=== PATIENT | female | born 1955 | race Asian ===

== ENCOUNTER → 2017-04-25 | Outpatient (CLI) | payer MEDICARE ==
[~2017-04-25] MED LIST: AMLO-511 PO; AMLO-512 PO; ASPI81 PO; CARV6 PO; CHOL50004 PO; FOLI1CAP2 PO; LEVO250T2 PO; SEVEC800 PO
[2017-04-25 13:36] LABS: BASOPHILS # (AUTO) 0.01 K/uL (0.00-0.20); BASOPHILS % (AUTO) 0.1 % (0.0-2.0); EOSINOPHILS # (AUTO) 0.17 K/uL (0.00-0.70); EOSINOPHILS % (AUTO) 1.07 % (1.0-6.0); HEMATOCRIT 31.7 % (36-46); HEMOGLOBIN 10.8 g/dL (12.0-16.0); LYMPHOCYTES # (AUTO) 1.8 K/uL (1.0-4.8); LYMPHOCYTES % (AUTO) 11.7 % (22.0-44.0); MEAN CORPUSCULAR HEMOGLOBIN 29.2 pg (26.0-34.0); MEAN CORPUSCULAR HGB CONC 34.2 G/dL (31.0-37.0); MEAN CORPUSCULAR VOLUME 85 fL (80-100); MONOCYTES # (AUTO) 0.9 K/uL (0.1-1.0); MONOCYTES % (AUTO) 5.6 % (2.0-9.0); NEUTROPHILS # (AUTO) 12.6 K/uL (1.8-7.7); NEUTROPHILS % (AUTO) 81.6 % (40.0-70.0); PLATELET COUNT (AUTO) 235 K/uL (150-450); RED CELL DISTRIBUTION WIDTH 14.8 % (11.5-14.5)
[2017-04-25 13:54] LABS: ALBUMIN 2.8 g/dL (3.4-5.0); BILIRUBIN,TOTAL 0.5 mg/dL (0.1-1.0); CALCIUM, TOTAL 8.8 mg/dL (8.8-10.5); CREATININE 16.3 mg/dL (0.60-1.30); PHOSPHORUS 6.5 mg/dL (2.5-4.9); POTASSIUM 5.5 mmol/L (3.5-5.1)
[2017-04-25 17:35] LABS: APPEARANCE,URINE CLOUDY (CLEAR); BILIRUBIN,URINE NEGATIVE (NEGATIVE); GLUCOSE, URINE (UA) 250 mg/dL (NEGATIVE); KETONES,URINE NEGATIVE (NEGATIVE); LEUKOCYTE ESTERASE ,URINE NEGATIVE (NEGATIVE); NITRATE,URINE NEGATIVE (NEGATIVE); OCCULT BLOOD,URINE SMALL (NEGATIVE); PROTEIN,URINE SEE CONFIRM (NEGATIVE); UROBILINOGEN,URINE 0.2 mg/dL (<=1.0)
[2017-04-25 18:15] LABS: SQUAMOUS EPITHELIAL CELL,UR Many /LPF (None Seen); SULFOSALICYLIC ACID,URINE 3+ (Negative)
[2017-04-25 18:17] LABS: BACTERIA,URINE Few /HPF (None Seen)
== END | disposition home or self-care (01) ==
LOC: LABPV 12:38
PROVIDERS: ATTEND Internal Medicine Nephrology
DX: N18.6 End stage renal disease (principal); R82.90 Unspecified abnormal findings in urine; E21.5 Disorder of parathyroid gland, unspecified; I42.0 Dilated cardiomyopathy; R79.9 Abnormal finding of blood chemistry, unspecified; D63.1 Anemia in chronic kidney disease; Z99.2 Dependence on renal dialysis
CPT/HCPCS: 83970; 84100; 87340

== ENCOUNTER 2017-04-26 10:24 | Inpatient (IN) | payer MEDICARE ==
[~2017-04-26] VITALS: Ht 157.5 cm; Wt 56.9 kg
[2017-04-26] MEDS ORDERED: ASPI81 PO (10:33)
[2017-04-26] MEDS ORDERED: CHOL50004 PO (10:33)
[2017-04-26] MEDS ORDERED: CARV6 PO (10:33)
[2017-04-26] MEDS ORDERED: AMLO-511 PO (10:33)
[2017-04-26 12:07] LABS: EOSINOPHILS # (AUTO) 0.12 K/uL (0.00-0.70); EOSINOPHILS % (AUTO) 0.69 % (1.0-6.0); HEMATOCRIT 30.5 % (36-46); HEMOGLOBIN 10.2 g/dL (12.0-16.0); MEAN CORPUSCULAR HEMOGLOBIN 29.2 pg (26.0-34.0); MEAN CORPUSCULAR HGB CONC 33.3 G/dL (31.0-37.0); MEAN CORPUSCULAR VOLUME 88 fL (80-100); MONOCYTES # (AUTO) 0.9 K/uL (0.1-1.0); MONOCYTES % (AUTO) 5.3 % (2.0-9.0); PLATELET COUNT (AUTO) 245 K/uL (150-450); RED BLOOD CELL COUNT(AUTO) 3.49 MIL/uL (4.00-5.20); RED CELL DISTRIBUTION WIDTH 14.9 % (11.5-14.5); WHITE BLOOD COUNT (AUTO) 17.1 K/uL (4.5-11.0)
[2017-04-26 12:15] LABS: ALBUMIN 2.7 g/dL (3.4-5.0); BILIRUBIN,TOTAL 0.5 mg/dL (0.1-1.0); CALCIUM, TOTAL 8.8 mg/dL (8.8-10.5); CREATININE 17.22 mg/dL (0.60-1.30); POTASSIUM 5.8 mmol/L (3.5-5.1); TOTAL PROTEIN, SERUM 8.1 g/dL (6.4-8.2)
[2017-04-26 12:34] LABS: RBC MORPHOLOGY COMMENT ABNORMAL RBC MORPH
[2017-04-26] MEDS ORDERED: ALBUTEROL SULFATE 2.5 MG/0.5 ML NEB SOLUTION NEB PRN (13:45)
[2017-04-26] MEDS ORDERED: BISACODYL 10 MG RECTAL RECTAL SUPPOSITORY PR PRN (13:45)
[2017-04-26] MEDS ORDERED: ONDANSETRON HCL 4 MG/2 ML VIAL IVP PRN (14:00)
[2017-04-26] MEDS ORDERED: SODIUM POLYSTYRENE SULFONATE 15 GM/60 ML SUSPENSION BOTTLE PO ONE (14:00)
[2017-04-26] MEDS ORDERED: CALCIUM GLUCONATE 0.465 MEQ/ML 10 ML VIAL IVP ONE (14:00)
[2017-04-26] MEDS ORDERED: 0.9% SODIUM CHLORIDE 10 ML SYRINGE IVP PRN (14:00)
[2017-04-26] MEDS ORDERED: ACETAMINOPHEN 325 MG TABLET PO PRN (14:00)
[2017-04-26] MEDS ORDERED: VANCOMYCIN HCL 1 GM/D5% WATER 200 ML IV PRN (14:30)
[2017-04-26 14:54] VITALS: BP 120/72
[2017-04-26] MEDS ORDERED: VANCOMYCIN HCL 1 GM/D5% WATER 200 ML IV ONE (15:00)
[2017-04-26] MEDS ORDERED: SODIUM CHLORIDE 0.9% 2,000 ML IV ONE (16:53)
[2017-04-26] MEDS ORDERED: INFLUENZA VIRUS VACCINE QVS 2017-18 (3YR+)/PF 60 MCG/0.5 ML SYRINGE IM ONE (17:15)
[2017-04-26] MEDS: ACETAMINOPHEN 325 MG TABLET PO PRN (19:03)
[2017-04-26] MEDS: HEPARIN SODIUM,PORCINE 5,000 UNITS/ML VIAL SQ SCH (20:56)
[2017-04-26] MEDS: VITAMIN B COMP/VIT C/FOLIC ACID CAPSULE PO SCH (20:56)
[2017-04-26] MEDS: DOCUSATE SODIUM 100 MG CAPSULE PO SCH (20:57)
[2017-04-26 21:18] VITALS: BP 146/83
[2017-04-26] MEDS ORDERED: HEPARIN SODIUM,PORCINE 1,000 UNITS/ML VIAL IVP ONE ×2 (22:30)
[2017-04-27] VITALS (7 sets, daily range): BP systolic 111–138; BP diastolic 59–79
[2017-04-27 02:04] LABS: APPEARANCE,URINE CLEAR (CLEAR); GLUCOSE, URINE (UA) 100 mg/dL (NEGATIVE); KETONES,URINE TRACE mg/dL (NEGATIVE); LEUKOCYTE ESTERASE ,URINE NEGATIVE (NEGATIVE); OCCULT BLOOD,URINE SMALL (NEGATIVE); PH,URINE 7.5 (5.0-8.0); PROTEIN,URINE SEE CONFIRM (NEGATIVE)
[2017-04-27 02:05] LABS: ADD UA MICROSCOPIC YES
[2017-04-27 02:13] LABS: SULFOSALICYLIC ACID,URINE 1+ (Negative)
[2017-04-27 02:14] LABS: SQUAMOUS EPITHELIAL CELL,UR Moderate /LPF (None Seen)
[2017-04-27 06:16] LABS: EOSINOPHILS % (AUTO) 0.5 % (1.0-6.0); HEMATOCRIT 28.9 % (36-46); HEMOGLOBIN 9.9 g/dL (12.0-16.0); LYMPHOCYTES # (AUTO) 1.1 K/uL (1.0-4.8); LYMPHOCYTES % (AUTO) 6.6 % (22.0-44.0); MEAN CORPUSCULAR HEMOGLOBIN 29.5 pg (26.0-34.0); MEAN CORPUSCULAR HGB CONC 34.2 G/dL (31.0-37.0); MEAN CORPUSCULAR VOLUME 86 fL (80-100); MONOCYTES # (AUTO) 1.2 K/uL (0.1-1.0); MONOCYTES % (AUTO) 7.1 % (2.0-9.0); NEUTROPHILS # (AUTO) 14.7 K/uL (1.8-7.7); PLATELET COUNT (AUTO) 219 K/uL (150-450); RED BLOOD CELL COUNT(AUTO) 3.35 MIL/uL (4.00-5.20); RED CELL DISTRIBUTION WIDTH 14.4 % (11.5-14.5); WHITE BLOOD COUNT (AUTO) 17.1 K/uL (4.5-11.0)
[2017-04-27 06:47] LABS: CALCIUM, TOTAL 8.4 mg/dL (8.8-10.5); CREATININE 9.03 mg/dL (0.60-1.30); MAGNESIUM 1.7 mg/dL (1.80-2.40); PHOSPHORUS 5.5 mg/dL (2.5-4.9); POTASSIUM 3.7 mmol/L (3.5-5.1)
[2017-04-27 06:54] LABS: NEUTROPHILS % (AUTO) 85.8 % (40.0-70.0)
[2017-04-27] MEDS: ASPIRIN 81 MG CHEWABLE TABLET PO SCH (08:03)
[2017-04-27] MEDS: PANTOPRAZOLE SODIUM 40 MG DR TABLET PO SCH (08:03)
[2017-04-27] MEDS: VITAMIN B COMP/VIT C/FOLIC ACID CAPSULE PO SCH (08:03)
[2017-04-27] MEDS: HEPARIN SODIUM,PORCINE 5,000 UNITS/ML VIAL SQ SCH ×2 (08:04→20:33)
[2017-04-27] MEDS: DOCUSATE SODIUM 100 MG CAPSULE PO SCH ×2 (08:07→20:37)
[2017-04-27] MEDS ORDERED: VITAMIN B COMP/VIT C/FOLIC ACID CAPSULE PO SCH (09:00)
[2017-04-27] MEDS ORDERED: PIPERACILLIN SODIUM/TAZOBACTAM 0.75 GM in DEXTROSE 5%-WATER 50 ML IV PRN (13:45)
[2017-04-27] MEDS: PIPERACILLIN SODIUM/TAZOBACTAM 2.25 GM in DEXTROSE 5%-WATER 50 ML IV SCH ×2 (15:12→23:02)
[2017-04-27] MEDS ORDERED: CefTRIAXone 1 GM/DEXTROSE 50 ML IV SCH (15:15)
[2017-04-27] MEDS ORDERED: GENTAMICIN 120 MG/NACL ISO-OSM 100 ML IV ONE (16:00)
[2017-04-27] MEDS: ACETAMINOPHEN 325 MG TABLET PO PRN (21:43)
[2017-04-28 05:36] VITALS: BP 145/85
[2017-04-28 06:08] LABS: BASOPHILS % (AUTO) 0.2 % (0.0-2.0); EOSINOPHILS % (AUTO) 0.5 % (1.0-6.0); HEMATOCRIT 29.5 % (36-46); LYMPHOCYTES # (AUTO) 1.5 K/uL (1.0-4.8); LYMPHOCYTES % (AUTO) 8.2 % (22.0-44.0); MEAN CORPUSCULAR HEMOGLOBIN 29.1 pg (26.0-34.0); MEAN CORPUSCULAR HGB CONC 33.8 G/dL (31.0-37.0); MEAN CORPUSCULAR VOLUME 86 fL (80-100); MONOCYTES # (AUTO) 1.2 K/uL (0.1-1.0); MONOCYTES % (AUTO) 6.7 % (2.0-9.0); NEUTROPHILS # (AUTO) 14.9 K/uL (1.8-7.7); NEUTROPHILS % (AUTO) 84.4 % (40.0-70.0); PLATELET COUNT (AUTO) 263 K/uL (150-450); RED BLOOD CELL COUNT(AUTO) 3.43 MIL/uL (4.00-5.20); RED CELL DISTRIBUTION WIDTH 14.3 % (11.5-14.5); WHITE BLOOD COUNT (AUTO) 17.7 K/uL (4.5-11.0)
[2017-04-28] MEDS: PIPERACILLIN SODIUM/TAZOBACTAM 2.25 GM in DEXTROSE 5%-WATER 50 ML IV SCH ×3 (06:27→22:27)
[2017-04-28] MEDS ORDERED: HEPARIN SODIUM,PORCINE 1,000 UNITS/ML VIAL IVP ONE (07:09)
[2017-04-28 07:33] VITALS: BP 112/69
[2017-04-28 07:40] LABS: CALCIUM, TOTAL 8.1 mg/dL (8.8-10.5); CREATININE 11.7 mg/dL (0.60-1.30); MAGNESIUM 1.8 mg/dL (1.80-2.40); PHOSPHORUS 5.8 mg/dL (2.5-4.9); POTASSIUM 4.6 mmol/L (3.5-5.1)
[2017-04-28] MEDS: VITAMIN B COMP/VIT C/FOLIC ACID CAPSULE PO SCH (08:56)
[2017-04-28] MEDS: HEPARIN SODIUM,PORCINE 5,000 UNITS/ML VIAL SQ SCH ×2 (08:56→20:14)
[2017-04-28] MEDS: DOCUSATE SODIUM 100 MG CAPSULE PO SCH ×2 (08:57→20:14)
[2017-04-28] MEDS: ASPIRIN 81 MG CHEWABLE TABLET PO SCH (08:57)
[2017-04-28] MEDS: PANTOPRAZOLE SODIUM 40 MG DR TABLET PO SCH (08:57)
[2017-04-28] MEDS ORDERED: -ZOSYN NOTE- MISC SCH (09:00)
[2017-04-28 09:52] LABS: PROTHROMBIN TIME 10.7 SEC (9.4-11.6)
[2017-04-28 11:35] VITALS: BP 133/74
[2017-04-28] MEDS ORDERED: LIDOCAINE HCL/PF 1% 30 ML VIAL ONE (14:19)
[2017-04-28 15:35] VITALS: BP 137/78
[2017-04-28] MEDS: ACETAMINOPHEN 325 MG TABLET PO PRN (17:44)
[2017-04-28 20:03] VITALS: BP 134/76
[2017-04-29 00:27] VITALS: BP 148/74
[2017-04-29 04:37] VITALS: BP 143/79
[2017-04-29] MEDS: PIPERACILLIN SODIUM/TAZOBACTAM 2.25 GM in DEXTROSE 5%-WATER 50 ML IV SCH ×2 (06:21→16:25)
[2017-04-29 07:26] LABS: BASOPHILS # (AUTO) 0.01 K/uL (0.00-0.20); BASOPHILS % (AUTO) 0.1 % (0.0-2.0); EOSINOPHILS # (AUTO) 0.18 K/uL (0.00-0.70); EOSINOPHILS % (AUTO) 1.06 % (1.0-6.0); HEMATOCRIT 27.2 % (36-46); HEMOGLOBIN 9.3 g/dL (12.0-16.0); LYMPHOCYTES # (AUTO) 2.1 K/uL (1.0-4.8); LYMPHOCYTES % (AUTO) 12.3 % (22.0-44.0); MEAN CORPUSCULAR HEMOGLOBIN 29.6 pg (26.0-34.0); MEAN CORPUSCULAR HGB CONC 34.1 G/dL (31.0-37.0); MEAN CORPUSCULAR VOLUME 87 fL (80-100); MONOCYTES # (AUTO) 1.1 K/uL (0.1-1.0); MONOCYTES % (AUTO) 6.5 % (2.0-9.0); NEUTROPHILS # (AUTO) 13.5 K/uL (1.8-7.7); PLATELET COUNT (AUTO) 264 K/uL (150-450); RED BLOOD CELL COUNT(AUTO) 3.14 MIL/uL (4.00-5.20); RED CELL DISTRIBUTION WIDTH 14.7 % (11.5-14.5); WHITE BLOOD COUNT (AUTO) 16.9 K/uL (4.5-11.0)
[2017-04-29 07:29] VITALS: BP 125/60
[2017-04-29 07:35] LABS: CALCIUM, TOTAL 8.3 mg/dL (8.8-10.5); CREATININE 13.63 mg/dL (0.60-1.30); MAGNESIUM 1.9 mg/dL (1.80-2.40); PHOSPHORUS 6.3 mg/dL (2.5-4.9); POTASSIUM 4.5 mmol/L (3.5-5.1)
[2017-04-29] MEDS: VITAMIN B COMP/VIT C/FOLIC ACID CAPSULE PO SCH (09:00)
[2017-04-29] MEDS: HEPARIN SODIUM,PORCINE 5,000 UNITS/ML VIAL SQ SCH ×2 (09:07→20:16)
[2017-04-29] MEDS: EPOETIN ALFA 10,000 UNITS/ML VIAL SQ SCH (09:07)
[2017-04-29] MEDS: DOCUSATE SODIUM 100 MG CAPSULE PO SCH ×2 (09:08→20:16)
[2017-04-29] MEDS: ASPIRIN 81 MG CHEWABLE TABLET PO SCH (09:09)
[2017-04-29] MEDS: PANTOPRAZOLE SODIUM 40 MG DR TABLET PO SCH (09:09)
[2017-04-29] MEDS ORDERED: VANCOMYCIN HCL 1 GM/D5% WATER 200 ML IV ONE (10:00)
[2017-04-29 11:05] VITALS: BP 127/56
[2017-04-29] MEDS ORDERED: *CLINICAL-GENTAMICIN DOSING CLINICAL ONE ×2 (14:00)
[2017-04-29 15:17] VITALS: BP 142/65
[2017-04-29] MEDS: SEVELAMER CARBONATE 800 MG TABLET PO SCH (17:50)
[2017-04-29 20:00] VITALS: BP 156/80
[2017-04-30] VITALS (7 sets, daily range): BP systolic 115–161; BP diastolic 67–89
[2017-04-30] MEDS: CefTRIAXone 1 GM/DEXTROSE 50 ML IV SCH ×2 (00:13→23:33)
[2017-04-30 07:30] LABS: BASOPHILS # (AUTO) 0.05 K/uL (0.00-0.20); BASOPHILS % (AUTO) 0.3 % (0.0-2.0); EOSINOPHILS # (AUTO) 0.25 K/uL (0.00-0.70); EOSINOPHILS % (AUTO) 1.32 % (1.0-6.0); HEMATOCRIT 27.2 % (36-46); HEMOGLOBIN 9.1 g/dL (12.0-16.0); LYMPHOCYTES % (AUTO) 10.5 % (22.0-44.0); MEAN CORPUSCULAR HEMOGLOBIN 29.1 pg (26.0-34.0); MEAN CORPUSCULAR HGB CONC 33.6 G/dL (31.0-37.0); MEAN CORPUSCULAR VOLUME 87 fL (80-100); MONOCYTES # (AUTO) 0.8 K/uL (0.1-1.0); NEUTROPHILS # (AUTO) 15.9 K/uL (1.8-7.7); NEUTROPHILS % (AUTO) 83.9 % (40.0-70.0); PLATELET COUNT (AUTO) 296 K/uL (150-450); RED BLOOD CELL COUNT(AUTO) 3.13 MIL/uL (4.00-5.20); RED CELL DISTRIBUTION WIDTH 14.8 % (11.5-14.5)
[2017-04-30 08:05] LABS: CALCIUM, TOTAL 8.1 mg/dL (8.8-10.5); CREATININE 14.99 mg/dL (0.60-1.30); PHOSPHORUS 7.1 mg/dL (2.5-4.9); POTASSIUM 4.5 mmol/L (3.5-5.1)
[2017-04-30] MEDS: -POST HEMODIALYSIS NOTE- MISC SCH (08:09)
[2017-04-30] MEDS: VITAMIN B COMP/VIT C/FOLIC ACID CAPSULE PO SCH (08:20)
[2017-04-30] MEDS: AmLODIPine BESYLATE 10 MG TABLET PO SCH (08:20)
[2017-04-30] MEDS: PANTOPRAZOLE SODIUM 40 MG DR TABLET PO SCH (08:20)
[2017-04-30] MEDS: DOCUSATE SODIUM 100 MG CAPSULE PO SCH ×2 (08:20→20:01)
[2017-04-30] MEDS: SEVELAMER CARBONATE 800 MG TABLET PO SCH ×3 (08:20→17:51)
[2017-04-30] MEDS: ASPIRIN 81 MG CHEWABLE TABLET PO SCH (08:20)
[2017-04-30] MEDS: HEPARIN SODIUM,PORCINE 5,000 UNITS/ML VIAL SQ SCH ×2 (08:21→20:01)
[2017-04-30] MEDS ORDERED: AMLO-512 PO (14:15)
[2017-04-30] MEDS: CARVEDILOL 6.25 MG TABLET PO SCH (20:01)
[2017-05-01] VITALS (7 sets, daily range): BP systolic 149–162; BP diastolic 74–87
[2017-05-01] MEDS: CARVEDILOL 6.25 MG TABLET PO SCH ×2 (08:25→19:03)
[2017-05-01] MEDS: PANTOPRAZOLE SODIUM 40 MG DR TABLET PO SCH (08:25)
[2017-05-01] MEDS: SEVELAMER CARBONATE 800 MG TABLET PO SCH ×3 (08:25→18:10)
[2017-05-01] MEDS: ASPIRIN 81 MG CHEWABLE TABLET PO SCH (08:25)
[2017-05-01] MEDS: VITAMIN B COMP/VIT C/FOLIC ACID CAPSULE PO SCH (08:25)
[2017-05-01] MEDS: AmLODIPine BESYLATE 10 MG TABLET PO SCH (08:25)
[2017-05-01] MEDS: HEPARIN SODIUM,PORCINE 5,000 UNITS/ML VIAL SQ SCH (08:25)
[2017-05-01] MEDS: DOCUSATE SODIUM 100 MG CAPSULE PO SCH ×2 (08:28→20:20)
[2017-05-01] MEDS: -POST HEMODIALYSIS NOTE- MISC SCH (09:00)
[2017-05-01] MEDS: CefTRIAXone 1 GM/DEXTROSE 50 ML IV SCH (23:02)
[2017-05-02] MEDS: -POST HEMODIALYSIS NOTE- MISC SCH (02:30)
[2017-05-02 05:45] VITALS: BP 152/79
[2017-05-02 06:38] LABS: BASOPHILS % (AUTO) 0.1 % (0.0-2.0); EOSINOPHILS % (AUTO) 0.5 % (1.0-6.0); HEMATOCRIT 25.5 % (36-46); HEMOGLOBIN 8.8 g/dL (12.0-16.0); LYMPHOCYTES # (AUTO) 2.5 K/uL (1.0-4.8); LYMPHOCYTES % (AUTO) 11.1 % (22.0-44.0); MEAN CORPUSCULAR HEMOGLOBIN 29.6 pg (26.0-34.0); MEAN CORPUSCULAR HGB CONC 34.7 G/dL (31.0-37.0); MEAN CORPUSCULAR VOLUME 85 fL (80-100); MONOCYTES # (AUTO) 0.9 K/uL (0.1-1.0); MONOCYTES % (AUTO) 3.9 % (2.0-9.0); NEUTROPHILS # (AUTO) 19.1 K/uL (1.8-7.7); NEUTROPHILS % (AUTO) 84.4 % (40.0-70.0); PLATELET COUNT (AUTO) 316 K/uL (150-450); RED BLOOD CELL COUNT(AUTO) 2.99 MIL/uL (4.00-5.20); RED CELL DISTRIBUTION WIDTH 14.9 % (11.5-14.5); WHITE BLOOD COUNT (AUTO) 22.7 K/uL (4.5-11.0)
[2017-05-02 07:11] LABS: CALCIUM, TOTAL 8.5 mg/dL (8.8-10.5); CREATININE 16.23 mg/dL (0.60-1.30); PHOSPHORUS 7.8 mg/dL (2.5-4.9); POTASSIUM 4.9 mmol/L (3.5-5.1)
[2017-05-02 07:50] VITALS: BP 160/70
[2017-05-02] MEDS: SEVELAMER CARBONATE 800 MG TABLET PO SCH ×3 (08:00→17:10)
[2017-05-02] MEDS: AmLODIPine BESYLATE 10 MG TABLET PO SCH (08:07)
[2017-05-02] MEDS: CARVEDILOL 6.25 MG TABLET PO SCH ×2 (08:07→20:28)
[2017-05-02] MEDS: VITAMIN B COMP/VIT C/FOLIC ACID CAPSULE PO SCH (08:08)
[2017-05-02] MEDS: PANTOPRAZOLE SODIUM 40 MG DR TABLET PO SCH (08:08)
[2017-05-02] MEDS: DOCUSATE SODIUM 100 MG CAPSULE PO SCH ×2 (08:08→21:00)
[2017-05-02] MEDS: EPOETIN ALFA 10,000 UNITS/ML VIAL SQ SCH (09:00)
[2017-05-02] MEDS ORDERED: HEPARIN SODIUM,PORCINE 1,000 UNITS/ML 10 ML VIAL ONE (09:32)
[2017-05-02] MEDS ORDERED: LIDOCAINE HCL/PF 1% 30 ML VIAL ONE (09:32)
[2017-05-02] MEDS ORDERED: HEPARIN SODIUM 1000 UNITS/NS 500 ML ONE (09:32)
[2017-05-02] MEDS ORDERED: FentaNYL CITRATE-PF 100 MCG/2 ML VIAL ONE (09:40)
[2017-05-02] MEDS ORDERED: MIDAZOLAM HCL 2 MG/2 ML VIAL ONE (09:41)
[2017-05-02] MEDS ORDERED: MIDAZOLAM HCL 2 MG/2 ML VIAL IVP ONE (10:24)
[2017-05-02] MEDS ORDERED: FentaNYL CITRATE-PF 100 MCG/2 ML VIAL IVP ONE (10:32)
[2017-05-02] MEDS ORDERED: HEPARIN SODIUM,PORCINE 1,000 UNITS/ML VIAL IVP ONE (12:00)
[2017-05-02 12:20] VITALS: BP 158/85
[2017-05-02] MEDS: ACETAMINOPHEN 325 MG TABLET PO PRN (13:18)
[2017-05-02 15:41] VITALS: BP 150/84
[2017-05-02] MEDS: OxyCODONE HCL/ACETAMINOPHEN 5-325 MG TABLET PO PRN (17:10)
[2017-05-02 20:11] VITALS: BP 149/91
[2017-05-02] MEDS ORDERED: OxyCODONE HCL/ACETAMINOPHEN 5-325 MG TABLET PO ONE (20:15)
[2017-05-02] MEDS: CefTRIAXone 1 GM/DEXTROSE 50 ML IV SCH (23:20)
[2017-05-03 00:09] VITALS: BP 126/77
[2017-05-03] MEDS: OxyCODONE HCL/ACETAMINOPHEN 5-325 MG TABLET PO PRN ×3 (00:57→20:23)
[2017-05-03] MEDS: GENTAMICIN 80 MG/NACL ISO-OSM 50 ML IV PRN (02:30)
[2017-05-03 05:52] VITALS: BP 131/78
[2017-05-03 06:20] LABS: HEMATOCRIT 28.3 % (36-46); HEMOGLOBIN 9.7 g/dL (12.0-16.0); MEAN CORPUSCULAR HEMOGLOBIN 29.6 pg (26.0-34.0); MEAN CORPUSCULAR HGB CONC 34.3 G/dL (31.0-37.0); MEAN CORPUSCULAR VOLUME 86 fL (80-100); PLATELET COUNT (AUTO) 351 K/uL (150-450); RED BLOOD CELL COUNT(AUTO) 3.29 MIL/uL (4.00-5.20); RED CELL DISTRIBUTION WIDTH 14.5 % (11.5-14.5); WHITE BLOOD COUNT (AUTO) 23.1 K/uL (4.5-11.0)
[2017-05-03 06:36] LABS: CALCIUM, TOTAL 8.6 mg/dL (8.8-10.5); CREATININE 11.29 mg/dL (0.60-1.30); MAGNESIUM 1.9 mg/dL (1.80-2.40); PHOSPHORUS 7.1 mg/dL (2.5-4.9); POTASSIUM 4.4 mmol/L (3.5-5.1)
[2017-05-03 07:37] VITALS: BP 144/77
[2017-05-03 08:06] LABS: BAND NEUTROPHILS % (MANUAL) 4 % (1-5); LYMPHOCYTES % (MANUAL) 18 % (22-44); METAMYELOCYTES % 2 % (0-0); RBC MORPHOLOGY COMMENT NORMAL RBC MORPH; TOTAL CELLS COUNTED 100
[2017-05-03] MEDS: DOCUSATE SODIUM 100 MG CAPSULE PO SCH ×2 (09:00→20:23)
[2017-05-03] MEDS: -POST HEMODIALYSIS NOTE- MISC SCH (09:00)
[2017-05-03] MEDS: SEVELAMER CARBONATE 800 MG TABLET PO SCH ×3 (10:26→18:37)
[2017-05-03] MEDS: AmLODIPine BESYLATE 10 MG TABLET PO SCH (10:27)
[2017-05-03] MEDS: CARVEDILOL 6.25 MG TABLET PO SCH ×2 (10:27→20:23)
[2017-05-03] MEDS: VITAMIN B COMP/VIT C/FOLIC ACID CAPSULE PO SCH (10:27)
[2017-05-03] MEDS: PANTOPRAZOLE SODIUM 40 MG DR TABLET PO SCH (10:27)
[2017-05-03 11:11] VITALS: BP 124/70
[2017-05-03] MEDS ORDERED: HEPARIN SODIUM,PORCINE 1,000 UNITS/ML VIAL IVP ONE ×3 (12:00→18:45)
[2017-05-03] MEDS ORDERED: SODIUM CHLORIDE 0.9% 2,000 ML IV ONE (14:58)
[2017-05-03 15:38] VITALS: BP 155/88
[2017-05-03 20:16] VITALS: BP 134/73
[2017-05-03] MEDS: CefTRIAXone 1 GM/DEXTROSE 50 ML IV SCH (23:43)
[2017-05-04 00:32] VITALS: BP 144/76
[2017-05-04 04:25] VITALS: BP 138/73
[2017-05-04] MEDS: OxyCODONE HCL/ACETAMINOPHEN 5-325 MG TABLET PO PRN ×2 (04:32→20:41)
[2017-05-04 05:47] LABS: BASOPHILS # (AUTO) 0.02 K/uL (0.00-0.20); BASOPHILS % (AUTO) 0.1 % (0.0-2.0); EOSINOPHILS # (AUTO) 0.09 K/uL (0.00-0.70); EOSINOPHILS % (AUTO) 0.49 % (1.0-6.0); HEMATOCRIT 27.1 % (36-46); HEMOGLOBIN 9.1 g/dL (12.0-16.0); LYMPHOCYTES # (AUTO) 1.5 K/uL (1.0-4.8); LYMPHOCYTES % (AUTO) 8.5 % (22.0-44.0); MEAN CORPUSCULAR HEMOGLOBIN 29.2 pg (26.0-34.0); MEAN CORPUSCULAR HGB CONC 33.6 G/dL (31.0-37.0); MEAN CORPUSCULAR VOLUME 87 fL (80-100); MONOCYTES # (AUTO) 0.8 K/uL (0.1-1.0); MONOCYTES % (AUTO) 4.6 % (2.0-9.0); NEUTROPHILS # (AUTO) 15.5 K/uL (1.8-7.7); PLATELET COUNT (AUTO) 301 K/uL (150-450); RED BLOOD CELL COUNT(AUTO) 3.11 MIL/uL (4.00-5.20); RED CELL DISTRIBUTION WIDTH 14.5 % (11.5-14.5); WHITE BLOOD COUNT (AUTO) 17.9 K/uL (4.5-11.0)
[2017-05-04 06:10] LABS: CALCIUM, TOTAL 8.6 mg/dL (8.8-10.5); CREATININE 6.95 mg/dL (0.60-1.30); MAGNESIUM 1.6 mg/dL (1.80-2.40); PHOSPHORUS 5.4 mg/dL (2.5-4.9); POTASSIUM 4.2 mmol/L (3.5-5.1)
[2017-05-04 06:56] LABS: NEUTROPHILS % (AUTO) 86.3 % (40.0-70.0)
[2017-05-04 07:37] VITALS: BP 153/73
[2017-05-04 08:27] LABS: RBC MORPHOLOGY COMMENT NORMAL RBC MORPH
[2017-05-04] MEDS: PANTOPRAZOLE SODIUM 40 MG DR TABLET PO SCH (09:58)
[2017-05-04] MEDS: VITAMIN B COMP/VIT C/FOLIC ACID CAPSULE PO SCH (09:58)
[2017-05-04] MEDS: DOCUSATE SODIUM 100 MG CAPSULE PO SCH ×2 (09:58→20:41)
[2017-05-04] MEDS: SEVELAMER CARBONATE 800 MG TABLET PO SCH ×3 (09:58→17:50)
[2017-05-04] MEDS: EPOETIN ALFA 10,000 UNITS/ML VIAL SQ SCH (09:58)
[2017-05-04] MEDS: AmLODIPine BESYLATE 10 MG TABLET PO SCH (09:58)
[2017-05-04] MEDS: CARVEDILOL 6.25 MG TABLET PO SCH ×2 (09:58→20:41)
[2017-05-04 11:57] VITALS: BP 160/72
[2017-05-04 15:13] VITALS: BP 144/80
[2017-05-04 19:45] VITALS: BP 158/85
[2017-05-04] MEDS: CefTRIAXone 1 GM/DEXTROSE 50 ML IV SCH (21:18)
[2017-05-05 05:45] VITALS: BP 146/74
[2017-05-05 06:05] LABS: BASOPHILS % (AUTO) 0.2 % (0.0-2.0); HEMATOCRIT 25.4 % (36-46); HEMOGLOBIN 8.7 g/dL (12.0-16.0); LYMPHOCYTES # (AUTO) 1.9 K/uL (1.0-4.8); MEAN CORPUSCULAR HEMOGLOBIN 29.7 pg (26.0-34.0); MEAN CORPUSCULAR HGB CONC 34.4 G/dL (31.0-37.0); MEAN CORPUSCULAR VOLUME 86 fL (80-100); MONOCYTES # (AUTO) 0.9 K/uL (0.1-1.0); MONOCYTES % (AUTO) 4.4 % (2.0-9.0); NEUTROPHILS # (AUTO) 16.4 K/uL (1.8-7.7); NEUTROPHILS % (AUTO) 84.4 % (40.0-70.0); PLATELET COUNT (AUTO) 345 K/uL (150-450); RED BLOOD CELL COUNT(AUTO) 2.94 MIL/uL (4.00-5.20); WHITE BLOOD COUNT (AUTO) 19.5 K/uL (4.5-11.0)
[2017-05-05 06:13] LABS: CALCIUM, TOTAL 8.6 mg/dL (8.8-10.5); CREATININE 10.17 mg/dL (0.60-1.30); MAGNESIUM 1.8 mg/dL (1.80-2.40); PHOSPHORUS 6.9 mg/dL (2.5-4.9); POTASSIUM 4.5 mmol/L (3.5-5.1)
[2017-05-05 07:30] VITALS: BP 145/81
[2017-05-05] MEDS ORDERED: SODIUM CHLORIDE 0.9% 2,000 ML IV ONE (07:56)
[2017-05-05] MEDS: SEVELAMER CARBONATE 800 MG TABLET PO SCH ×3 (08:00→18:08)
[2017-05-05] MEDS: OxyCODONE HCL/ACETAMINOPHEN 5-325 MG TABLET PO PRN (08:01)
[2017-05-05] MEDS ORDERED: HEPARIN SODIUM,PORCINE 1,000 UNITS/ML VIAL IVP ONE ×3 (08:45→17:20)
[2017-05-05] MEDS ORDERED: MANNITOL 25%-12.5 GM/50 ML VIAL IVP PRN (08:45)
[2017-05-05] MEDS ORDERED: ALBUMIN HUMAN 25%-12.5GM/50ML IV BOTTLE IV PRN (08:45)
[2017-05-05] MEDS: AmLODIPine BESYLATE 10 MG TABLET PO SCH (09:51)
[2017-05-05] MEDS: CARVEDILOL 6.25 MG TABLET PO SCH ×2 (09:51→19:57)
[2017-05-05 11:16] VITALS: BP 132/76
[2017-05-05] MEDS: DOCUSATE SODIUM 100 MG CAPSULE PO SCH ×2 (11:48→19:57)
[2017-05-05] MEDS: VITAMIN B COMP/VIT C/FOLIC ACID CAPSULE PO SCH (11:48)
[2017-05-05] MEDS: PANTOPRAZOLE SODIUM 40 MG DR TABLET PO SCH (11:48)
[2017-05-05 13:37] LABS: ALBUMIN 2.8 g/dL (3.4-5.0); BILIRUBIN,TOTAL 0.4 mg/dL (0.1-1.0); TOTAL PROTEIN, SERUM 7.6 g/dL (6.4-8.2)
[2017-05-05 13:40] LABS: BILIRUBIN,DIRECT 0.2 mg/dL (0.00-0.20)
[2017-05-05 15:32] VITALS: BP 147/79
[2017-05-05] MEDS: GENTAMICIN 80 MG/NACL ISO-OSM 50 ML IV PRN (19:17)
[2017-05-05] MEDS: CefTRIAXone 1 GM/DEXTROSE 50 ML IV SCH (19:58)
[2017-05-05 20:18] VITALS: BP 134/74
[2017-05-06 04:08] VITALS: BP 140/72
[2017-05-06 06:02] LABS: BASOPHILS % (AUTO) 0.1 % (0.0-2.0); EOSINOPHILS % (AUTO) 0.4 % (1.0-6.0); HEMATOCRIT 25.4 % (36-46); HEMOGLOBIN 8.8 g/dL (12.0-16.0); LYMPHOCYTES # (AUTO) 1.9 K/uL (1.0-4.8); LYMPHOCYTES % (AUTO) 8.7 % (22.0-44.0); MEAN CORPUSCULAR HGB CONC 34.5 G/dL (31.0-37.0); MEAN CORPUSCULAR VOLUME 87 fL (80-100); MONOCYTES % (AUTO) 4.5 % (2.0-9.0); NEUTROPHILS # (AUTO) 18.5 K/uL (1.8-7.7); PLATELET COUNT (AUTO) 334 K/uL (150-450); RED BLOOD CELL COUNT(AUTO) 2.92 MIL/uL (4.00-5.20); RED CELL DISTRIBUTION WIDTH 14.7 % (11.5-14.5); WHITE BLOOD COUNT (AUTO) 21.4 K/uL (4.5-11.0)
[2017-05-06 06:10] LABS: NEUTROPHILS % (AUTO) 86.3 % (40.0-70.0)
[2017-05-06 06:30] LABS: ALBUMIN 2.8 g/dL (3.4-5.0); BILIRUBIN,TOTAL 0.4 mg/dL (0.1-1.0); TOTAL PROTEIN, SERUM 7.6 g/dL (6.4-8.2)
[2017-05-06 06:59] LABS: BILIRUBIN,DIRECT 0.1 mg/dL (0.00-0.20)
[2017-05-06] MEDS: DOCUSATE SODIUM 100 MG CAPSULE PO SCH ×2 (08:17→20:05)
[2017-05-06] MEDS: CARVEDILOL 6.25 MG TABLET PO SCH ×2 (08:18→20:05)
[2017-05-06] MEDS: EPOETIN ALFA 10,000 UNITS/ML VIAL SQ SCH (08:18)
[2017-05-06] MEDS: AmLODIPine BESYLATE 10 MG TABLET PO SCH (08:18)
[2017-05-06] MEDS: PANTOPRAZOLE SODIUM 40 MG DR TABLET PO SCH (08:18)
[2017-05-06] MEDS: VITAMIN B COMP/VIT C/FOLIC ACID CAPSULE PO SCH (08:18)
[2017-05-06] MEDS: SEVELAMER CARBONATE 800 MG TABLET PO SCH ×3 (08:18→17:57)
[2017-05-06] MEDS: OxyCODONE HCL/ACETAMINOPHEN 5-325 MG TABLET PO PRN (08:18)
[2017-05-06 08:25] VITALS: BP 132/74
[2017-05-06 11:25] VITALS: BP 137/68
[2017-05-06 15:06] VITALS: BP 154/73
[2017-05-06] MEDS ORDERED: FOLI1CAP2 PO (17:53)
[2017-05-06] MEDS ORDERED: SEVEC800 PO (17:53)
[2017-05-06] MEDS ORDERED: LEVO250T2 PO (17:53)
[2017-05-06] MEDS: CefTRIAXone 1 GM/DEXTROSE 50 ML IV SCH (18:17)
[2017-05-06 20:15] VITALS: BP 162/88
[2017-05-10 08:33] LABS: ALKALINE PHOSPHATASE - LIVER 38 % (18-85); ALKALINE PHOSPHATASE - OTHER 1 % (0-18)
== END 2017-05-06 20:10 | disposition home or self-care (01) | DRG 871 ==
LOC: EMS 10:26 → 5S 14:45
PROVIDERS: ADMIT Internal Medicine; ATTEND Internal Medicine
PROC: 5A1D70Z Performance of Urinary Filtration, Intermittent, Less than 6 Hours Per Day (ICD-10-PCS; 2017-04-26)
PROC: 05HM33Z Insertion of Infusion Device into Right Internal Jugular Vein, Percutaneous Approach (ICD-10-PCS; principal; 2017-05-02)
PROC: B5131ZA Fluoroscopy of Right Jugular Veins using Low Osmolar Contrast, Guidance (ICD-10-PCS; 2017-05-02)
PROC: 5A1D70Z Performance of Urinary Filtration, Intermittent, Less than 6 Hours Per Day (ICD-10-PCS; 2017-05-02)
PROC: 5A1D70Z Performance of Urinary Filtration, Intermittent, Less than 6 Hours Per Day (ICD-10-PCS; 2017-05-03)
PROC: 5A1D70Z Performance of Urinary Filtration, Intermittent, Less than 6 Hours Per Day (ICD-10-PCS; 2017-05-05)
DX: A41.9 Sepsis, unspecified organism (principal); N18.6 End stage renal disease; E11.22 Type 2 diabetes mellitus with diabetic chronic kidney disease; I12.0 Hypertensive chronic kidney disease with stage 5 chronic kidney disease or end stage renal disease; E87.5 Hyperkalemia; K83.8 Other specified diseases of biliary tract; D72.829 Elevated white blood cell count, unspecified; B96.89 Other specified bacterial agents as the cause of diseases classified elsewhere; D64.9 Anemia, unspecified; E78.5 Hyperlipidemia, unspecified; Z96.649 Presence of unspecified artificial hip joint; N28.1 Cyst of kidney, acquired; Z87.442 Personal history of urinary calculi; Z90.49 Acquired absence of other specified parts of digestive tract; Z99.2 Dependence on renal dialysis; Z28.21 Immunization not carried out because of patient refusal
CPT/HCPCS: 36245; 36561; 36590; 71250; 72192; 74150; 76770; 76937; 83540; 83550; 83735; 83970; 84080; 84100; 87040; 87081; 87340; 90935; 93005; 96374; 97162; 99285; J0610; J0696; J0885; J1580; J1644; J2250; J2543; J3010; J3370; J3490; J7030; J7060

== ENCOUNTER 2017-05-24 23:50 | Emergency (ER) | payer MEDICARE ==
[~2017-05-24] VITALS: Ht 152.4 cm; Wt 64.0 kg
[~2017-05-24 23:50] MED LIST changes: -AMLO-511 PO
[2017-05-25 01:31] LABS: BASOPHILS # (AUTO) 0.04 K/uL (0.00-0.20); BASOPHILS % (AUTO) 0.4 % (0.0-2.0); EOSINOPHILS # (AUTO) 0.13 K/uL (0.00-0.70); EOSINOPHILS % (AUTO) 1.28 % (1.0-6.0); HEMATOCRIT 28.7 % (36-46); HEMOGLOBIN 9.6 g/dL (12.0-16.0); LYMPHOCYTES # (AUTO) 2.2 K/uL (1.0-4.8); LYMPHOCYTES % (AUTO) 21.5 % (22.0-44.0); MEAN CORPUSCULAR HEMOGLOBIN 30.3 pg (26.0-34.0); MEAN CORPUSCULAR HGB CONC 33.3 G/dL (31.0-37.0); MEAN CORPUSCULAR VOLUME 91 fL (80-100); MONOCYTES # (AUTO) 0.6 K/uL (0.1-1.0); MONOCYTES % (AUTO) 5.6 % (2.0-9.0); NEUTROPHILS # (AUTO) 7.4 K/uL (1.8-7.7); NEUTROPHILS % (AUTO) 71.2 % (40.0-70.0); PLATELET COUNT (AUTO) 274 K/uL (150-450); RED BLOOD CELL COUNT(AUTO) 3.16 MIL/uL (4.00-5.20); RED CELL DISTRIBUTION WIDTH 17.8 % (11.5-14.5); WHITE BLOOD COUNT (AUTO) 10.4 K/uL (4.5-11.0)
[2017-05-25 02:04] LABS: CALCIUM, TOTAL 8.6 mg/dL (8.8-10.5); CREATININE 5.2 mg/dL (0.60-1.30); POTASSIUM 4.5 mmol/L (3.5-5.1)
[2017-05-25 02:10] LABS: BILIRUBIN,TOTAL 0.2 mg/dL (0.1-1.0); TOTAL PROTEIN, SERUM 7.6 g/dL (6.4-8.2)
[2017-05-25] MEDS ORDERED: HydrALAZINE HCL 20 MG/ML VIAL IVP ONE (02:15)
[2017-05-25] MEDS ORDERED: ONDANSETRON HCL 4 MG/2 ML VIAL IVP ONE (02:30)
[2017-05-25] MEDS ORDERED: MORPHINE SULFATE 2 MG/ML SYRINGE IVP ONE (02:30)
[2017-05-25] MEDS: DONNATAL/LIDOCAINE/MAALOX 55 ML BOTTLE PO ONE ×2 (03:36→03:38)
[2017-05-25 04:08] VITALS: BP 125/69
== END 2017-05-25 04:09 | disposition home or self-care (01) ==
LOC: EMS 23:51
DX: I12.0 Hypertensive chronic kidney disease with stage 5 chronic kidney disease or end stage renal disease (principal); N18.6 End stage renal disease; Z99.2 Dependence on renal dialysis
CPT/HCPCS: 36415; 80053; 84484; 85025; 93005; 96374; 96375; 99285; J0360; J2270; J2405; 96372